=== PATIENT | male | born 1960 | race Caucasian/White ===

== ENCOUNTER 2017-03-19 19:18 | Emergency (ER) | payer MEDICARE ==
[2017-03-19 20:19] VITALS: BP 124/86
--- NOTE | 2017-03-19 20:34 | UC ---
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 Pain is constant but worsening over past 2 wks with pain at 4-5/10 now and over past several days. Initially started at 1-2/10. No SOB or nausea or vomiting. Never had coagulation work up (I adv he do so for FHx for kids). Here with Yvette who helps provide hx. she relays that he has dementia and may not recall details of hx. - History of Current Complaint Chief Complaint: UCChestPain Stated Complaint: LEFT ARM,SHOULDER,NECK PAIN 3 WEEKS Time Seen by Provider: 03/19/17 20:02 - Allergy/Home Medications Allergies/Adverse Reactions: Allergies Allergy/AdvReac Type Severity Reaction Status Date / Time Penicillins Allergy Rash And Verified 03/19/17 20:14 Itching SEASONAL HAYFEVER Allergy Intermediate ITCHY Uncoded 03/19/17 20:14 WATERY EYES, CONGESTION Home Medications: Home Medications Acetaminophen [Eql Acetaminophen Extra S] 1,000 mg PO BID 03/19/17 [History Confirmed 03/19/17] PMH/Surg Hx/FS Hx/Imm Hx Previously Healthy: Yes Cardiovascular History Of: Reports: Cardiac Disorders - ND, HF, Afib, Hypertension - CONTROL WITH MEDS, Pacemaker/ICD - [employer] - DR[employer], [facility], Congestive Heart Failure GI/ History Of: Reports: Kidney Stones - HX OF - Surgical History Surgery Procedure, Year, and Place: 2007 PACEMAKER INSERTION, [facility]. 1999 BACK SURGERY, [place]. 2010 [place]EC[place] SURGERY, [place]. 2013 BILATERAL WRIST ORIF, [facility] - Family History Known Family History: Positive: Hypertension - Social History Alcohol Use: None Substance Use Type: None Smoking Status (MU): Never Smoked Tobacco - Immunization History Most Recent Tetanus Shot: 2009 Review of Systems Constitutional: Negative Skin: Negative Eyes: Negative ENT: Negative Respiratory: Negative Cardiovascular: Chest Pain Gastrointestinal: Negative Genitourinary: Negative Motor: Negative Neurovascular: Negative Musculoskeletal: Negative Neurological: Negative Psychological: Negative All Other Systems Reviewed And Are Negative: Yes Physical Exam Triage Information Reviewed: Yes Appearance: Well-Appearing, No Pain Distress, Well-Nourished - lying on exam table Vital Signs: Initial Vital Signs Temp 99.4 F 03/19/17 19:54 Pulse 62 03/19/17 19:54 Resp 12 03/19/17 19:54 BP 124/86 03/19/17 19:54 Pulse Ox 97 03/19/17 19:54 Vital Signs Reviewed: Yes Eye Exam: Normal ENT Exam: Normal ENT: Positive: Pharynx normal, TMs normal Dental Exam: Normal Neck exam: Normal Neck: Positive: Supple, Nontender, No Lymphadenopathy Respiratory Exam: Normal Respiratory: Positive: Lungs clear, Normal breath sounds, No respiratory distress, No accessory muscle use, Other: - chest wall tenderness over the site of hamilton pacemaker in left upper chest wall. Cardiovascular Exam: Normal Cardiovascular: Positive: RRR, No Murmur, Pulses Normal, Brisk Capillary Refill Abdominal Exam: Normal Abdomen Description: Positive: Nontender, Soft Bowel Sounds: Positive: Present Musculoskeletal Exam: Normal Neurological: Positive: Alert - AAO x3 Psychological Exam: Normal Skin Exam: Normal - Assessment/Plan Course Of Treatment: They decline ambulance, they decline Rm. 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 Aware of risks of driving including MVA, , permament disability and worsening condition. EKG - paced rhythm - Differential Diagnoses - Chest Pain Differential Diagnosis/HQI/PQRI: Acute ND, ACS, Other: - chest wall pain/ PE - Differential Diagnoses - Hypertension Differential Diagnosis/HQI PQRI: Myocardial Infarction - Differential Diagnoses - Palpitations Differential Diagnosis/HQI/PQRI: AV Block, Coronary Artery Disease - Clinical Impression Provider Diagnoses: chest pain, recurrent DVTs, pacemaker - Physician Notifications Discussed Patient Care With: Dr Vasquez at [facility] who accepts pt. Will fax note. Reviewed case and hx with him. Time Discussed With Above Provider: 20:30 Discharge - Discharge Plan Condition: Fair Disposition: TRANS HIGHER L OF CARE FAC
== END 2017-03-19 20:45 | disposition left against medical advice (07) ==
LOC: UCCORT 19:18
DX: R07.9 Chest pain, unspecified (principal); Z86.718 Personal history of other venous thrombosis and embolism; I48.91 Unspecified atrial fibrillation; Z79.01 Long term (current) use of anticoagulants; G31.83 Neurocognitive disorder with Lewy bodies; F02.80 Dementia in other diseases classified elsewhere, unspecified severity, without behavioral disturbance, psychotic disturbance, mood disturbance, and anxiety; I25.2 Old myocardial infarction; I50.9 Heart failure, unspecified; I10 Essential (primary) hypertension; Z95.810 Presence of automatic (implantable) cardiac defibrillator; Z87.442 Personal history of urinary calculi; Z88.0 Allergy status to penicillin
CPT/HCPCS: 93005; 99212; G0463

== ENCOUNTER 2017-07-23 21:02 | Emergency (ER) | payer MEDICARE ==
--- NOTE | 2017-07-23 21:10 | UC ---
Abdominal Pain Male HPI - HPI Summary HPI Summary: 57 YEAR OLD MALE PRESENTS WITH COMPLAINS OF ABDOMINAL PAIN AND DIARRHEA AFTER EATING AN OMELETTE. - History of Current Complaint Stated Complaint: ABDOMINAL PAIN (? FOOD POISONING) Time Seen by Provider: 07/23/17 21:09 Hx Obtained From: Patient Onset/Duration: Sudden Onset Severity Initially: Moderate Severity Currently: Moderate Pain Scale Used: 0-10 Numeric - 5 Location: Diffuse Character: Colicy, Cramping, Sharp - Allergies/Home Medications Allergies/Adverse Reactions: Allergies Allergy/AdvReac Type Severity Reaction Status Date / Time Penicillins Allergy Rash And Verified 07/23/17 21:50 Itching SEASONAL HAYFEVER Allergy Intermediate ITCHY Uncoded 07/23/17 21:50 WATERY EYES, CONGESTION PMH/Surg Hx/FS Hx/Imm Hx - Surgical History Surgery Procedure, Year, and Place: 2007 PACEMAKER INSERTION, [facility]. 1999 BACK SURGERY, [place]. 2010 NECK SURGERY, [place]. 2013 BILATERAL WRIST ORIF, [facility] - Family History Known Family History: Positive: Hypertension - Social History Alcohol Use: None Substance Use Type: None Smoking Status (MU): Never Smoked Tobacco - Immunization History Most Recent Tetanus Shot: 2009 Review of Systems Constitutional: Negative Skin: Negative Eyes: Negative ENT: Negative Respiratory: Negative Cardiovascular: Negative Gastrointestinal: Abdominal Pain, Diarrhea, Nausea Genitourinary: Negative Motor: Negative Neurovascular: Negative Musculoskeletal: Negative Neurological: Negative Psychological: Negative All Other Systems Reviewed And Are Negative: Yes Physical Exam Triage Information Reviewed: Yes Eye Exam: Normal ENT Exam: Normal Dental Exam: Normal Neck exam: Normal Neck: Positive: 1 Respiratory Exam: Normal Cardiovascular Exam: Normal Abdomen Description: Positive: Soft, Distended Musculoskeletal Exam: Normal Neurological Exam: Normal Psychological Exam: Normal Skin Exam: Normal Abd Pain Male Course/Dx - Differential Dx/Clinical Impression Provider Diagnoses: DIFFUSE ABDOMINAL PAIN. DIARRHEA. NAUSEA Discharge - Discharge Plan Condition: Stable Disposition: HOME Prescriptions: Dicyclomine CAP* [Bentyl CAP*] 10 mg PO ACHS PRN #30 cap PRN Reason: Diarrhea Loperamide HCl [Imodium A-D] 2 mg PO TID PRN #1 box PRN Reason: Diarrhea Patient Education Materials: Acute Diarrhea (ED), Food Poisoning (ED), Abdominal Pain (ED) Referrals: Sosa Sena MD [Medical Doctor] - If Needed
[2017-07-23] MEDS ORDERED: Dicyclomine CAP* 10 MG PO ONE (21:20)
[2017-07-23 21:50] VITALS: BP 117/77
== END 2017-07-23 22:06 | disposition home or self-care (01) ==
LOC: UCCORT 21:02
DX: R10.84 Generalized abdominal pain (principal); R19.7 Diarrhea, unspecified; R11.0 Nausea; Z95.0 Presence of cardiac pacemaker
CPT/HCPCS: 82272; 87045; 87046; 87077; 87338; 87493; 87899; 99212; A9270-GY; G0463

== ENCOUNTER 2018-01-18 07:34 | Day surgery (SDC) | payer MEDICARE ==
--- NOTE | 2018-01-12 22:16 | HP ---
CC: Dr. Keegan Garcias, [facility]; Dr. Dangelo Nathan; Dr. Holloway, [facility]; Dr. Gauthier, [facility] * ADMISSION HISTORY AND PHYSICAL: DATE OF ADMISSION/SURGERY: 01/18/18 ATTENDING PHYSICIAN: Dr. Saroj Nazario * (HARI Fagan, dictating). CHIEF COMPLAINT: Melanoma of the back. HISTORY OF PRESENT ILLNESS: This is a 57-year-old male with significant past sun exposure history, who first noted itching of his back about 6 weeks ago. His noted a pigmented lesion on the right side of the back that was likely being inflamed by the scratching. He underwent excision by Dr. Garcias on 12/25, which revealed a 1.9 mm thickness melanoma (see separate report). The patient was referred for surgical evaluation and has also been seen by Dr. Dangelo Nathan for Medical Oncology. He was seen in the office by Dr. Nazario on 01/05/18. Dr. Nazario discussed with him the indications for surgery, the risks , benefits, and alternatives and the expected perioperative course. He would like to proceed as scheduled with wide excision of melanoma of the back with sentinel lymph node biopsy. PAST MEDICAL HISTORY: Atrial fibrillation, sick sinus syndrome (status post pacemaker placement), hypertension, hyperlipidemia, history of CHF, GERD, stroke x2 (felt to be related to atrial fibrillation), asthma and allergies, restless leg syndrome. 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 CURRENT MEDICATIONS: 1. Coumadin 10 mg every Monday, Monday, Monday; 5 mg all other days (after review of the epic prelude analyst's note, the patient will hold for 5 days preoperatively, his last dose being 01/12/18. He will resume postoperatively at Dr. Nazario's direction). 2. Lisinopril 10 mg once daily. 3. Flecainide 50 mg daily. 4. Spironolactone 25 mg daily. 5. Simvastatin 80 mg daily. 6. Rivastigmine 4.5 mg b.i.d. 7. Lyrica 50 mg q.h.s. 8. Ipratropium nasal spray 0.3% 2 sprays each nostril 2 to 3 times a day p.r.n. 9. Omeprazole 20 mg daily. 10. Proventil HFA 108 mcg per activation 2 puffs 4 times a day p.r.n. (uses infrequently). 11. Nitroglycerin 0.4 mg sublingual q.5 minutes x3 p.r.n. for chest pain (the patient has not required in at least the past year). DRUG ALLERGIES: PENICILLIN (pruritic rash). FAMILY HISTORY: Positive for melanoma in his paternal grandmother. No known family history of anesthesia problems, bleeding, or clotting disorder. SOCIAL HISTORY: The patient is . 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 He denies use of tobacco. He drinks less than 1 drink per month. He denies other recreational drug use. REVIEW OF SYSTEMS: General: No recent constitutional symptoms or acute illnesses other than described in the HPI. Cardiovascular: He notes occasional palpitations or fluttering, but no chest pain or lightheadedness. He has regular pacemaker interrogation and did have a Cardiology followup with Dr. Roman in [place] in October (see attached). Respiratory: No recent exacerbations of his asthma or allergies. No chronic cough or shortness of breath. GI: No problems reported. Colonoscopy done within the past 5 years, no problems reported. : No problems reported. Endocrine: No diabetes or thyroid dysfunction. PHYSICAL EXAMINATION GENERAL: Well-nourished, well-developed male, in no acute distress. VITAL SIGNS: Height 68 inches, weight 189 pounds, blood pressure 154/90, pulse 78, respirations 16. HEENT: Pupils equal and round, reactive. EOMs intact. No conjunctival pallor. Oropharynx: Full upper and lower dentures. No intraoral lesions. NECK: No lymphadenopathy, thyromegaly, or masses. Nodes in the supraclavicular or cervical regions per the patient. No axillary or inguinal lymphadenopathy per Dr. Nazario and Dr. Nathan's exam. LUNGS: Lungs clear to auscultation. No rales or rhonchi. HEART: Regular rate and rhythm. No murmur appreciated. There is a left upper anterior chest wall pacemaker palpable. ABDOMEN: Soft, nontender to palpation. No palpable masses or organomegaly. There is what appears to be a surgical scar in the right groin form prior herniorrhaphy. BACK: No spinous process or CVA tenderness, see also above for skin exam. GENITALIA: Not examined. RECTAL: Not done. EXTREMITIES: No edema. NEUROLOGICAL: Grossly intact. SKIN: Warm and dry. No suspicious rashes or lesions noted. On the back ( right mid to lower back), there is a healing wound from recent excision. There is no evidence of wound infection. IMPRESSION: Melanoma of the right back. PLAN: Excision, melanoma of the back; sentinel lymph node biopsy. HARI FAGAN [id number]/[facility] #: [id number] MTDAlva
[~2018-01-18 07:34] MED LIST: Buffered Lidocaine 0.9% SYRIN* 5 ML/SYR SYRINGE INTRADERM ONE; NS 0.9% 1000 ML* 1,000 ML IV SCH
[2018-01-18] MEDS ORDERED: Buffered Lidocaine 0.9% SYRIN* 5 ML/SYR SYRINGE ONE (07:42)
[2018-01-18] MEDS ORDERED: Clindamycin 900 MG IVPREMIX(* 900 MG/50 ML SDV IV ONE (07:42)
--- NOTE | 2018-01-18 09:43 | RAD ---
INDICATION: Melanoma. Comparison: There are no prior studies available for comparison. Technique: The benefits and risks of the procedure were explained to the patient. The patient consented to the exam. A timeout was performed before beginning the procedure. 0.5 mCi of technetium 99m filtered sulfur colloid were injected around the melanoma biopsy site on the right posterior inferior back region. Four intradermal injections were made. The patient tolerated the procedure well without incident. Multiple images of the chest, both axilla, pelvis and both inguinal regions were obtained. FINDINGS: There are 2 sentinel nodes in the right axillary region. These were localized and marked on the patient's skin. The results of this exam were discussed with the referring clinician. IMPRESSION: THERE ARE 2 SENTINEL NODES IN THE RIGHT AXILLARY REGION.
[2018-01-18] MEDS ORDERED: fentaNYL* 50 MCG/ML 2 ML VIAL (100 MCG VIAL) ONE ×2 (11:05→15:37)
[2018-01-18] MEDS ORDERED: Midazolam* 1 MG/ML 2 ML VIAL (2 MG) ONE ×2 (11:05→12:14)
[2018-01-18] MEDS ORDERED: Lidocaine 1% MPF wEPI 200,000* 30 ML SDV ONE (11:52)
[2018-01-18] MEDS ORDERED: Bupivacaine 0.5% SDV PF* 10-30ML VIAL ONE (11:53)
[2018-01-18] MEDS ORDERED: Rocuronium* 10 MG/ML VIAL ONE (12:16)
[2018-01-18] MEDS ORDERED: Propofol* 10 MG/ML 20 ML BTL IV PUSH ONE (12:16)
[2018-01-18] MEDS ORDERED: Lidocaine 2% PF * 5 ML VIAL ONE (12:16)
[2018-01-18] MEDS ORDERED: Famotidine IV* 10 MG/ML 2 ML (20 mg) ONE (12:16)
[2018-01-18] MEDS ORDERED: Dexamethasone IV* 4 MG/ML 1 ML (4 MG) ONE (12:16)
[2018-01-18] MEDS ORDERED: EPHEDrine (Pressors)* 50 MG/ML VIAL ONE (13:00)
[2018-01-18] MEDS ORDERED: DiMENhydriNATE IV* 50 MG/ML VIAL IV PUSH PRN (13:32)
[2018-01-18] MEDS ORDERED: Acetaminophen TAB* 325 MG PO PRN (13:32)
[2018-01-18] MEDS ORDERED: Levalbuterol 0.63MG/3ML NEB* UNIT OF USE INH PRN (13:32)
[2018-01-18] MEDS ORDERED: HYDROcodone/ACETAMIN 5-325 MG* 1 TAB PO PRN (13:32)
[2018-01-18] MEDS ORDERED: Naloxone* 0.4 MG/ML 1 ML VIAL IV PRN (13:32)
[2018-01-18] MEDS ORDERED: PROCHLORPERAZINE INJ 5 MG/ML 2 ML VIAL IV PRN (13:32)
[2018-01-18] MEDS ORDERED: Ketorolac INJ* 30 MG/ML 1 ML VIAL ONE (14:13)
[2018-01-18] MEDS ORDERED: HYDROcodone/ACETAMIN 5-325 MG* 1 TAB ONE (15:37)
[2018-01-18] MEDS: fentaNYL* 50 MCG/ML 2 ML VIAL (100 MCG VIAL) IV PRN ×2 (15:39→15:54)
[2018-01-18 16:24] VITALS: BP 129/87
--- NOTE | 2018-01-19 12:46 | OP ---
CC: Dr. Nazario; Dr. Gauthier; Dr. Garcias; Dr. Nathan OPERATIVE REPORT: DATE OF OPERATION: 01/18/18 DATE OF : 58 SURGEON: Saroj Nazario MD EDUCATION ADMINISTRATIVE ASSISTANT: Sharon Banks NP ANESTHESIOLOGIST: Dr. Hernandez. ANESTHESIA: General anesthetic, local infiltration. PRE-OP DIAGNOSIS: Melanoma of the back. POST-OP DIAGNOSIS: Melanoma of the back. OPERATIVE PROCEDURE: Wide excision melanoma of the back and sentinel node biopsy. DESCRIPTION OF PROCEDURE: The patient was supine on the operative table. After adequate general ane sthetic, he was put in the prone position. The area of the right mid back where the melanoma had bee n excised was identified. This was measured to have [address] margins [address] the way around and an elliptica l incision was created to encompass this and this was carried down to include the muscle fascia and t hen flaps were raised and brought together with 3-0 Vicryl and then skin closed with the surgical cli ps. Hemostasis was excellent. The specimen was marked medially and sent in formalin for pathologic evaluation. Sterile dressing was placed. He was then placed in the supine position with the right a rm extended out. The axilla was prepped with antiseptic and draped in a sterile fashion. Local infil trative anesthesia was administered. Approximately 4 cm incision was created and dissection was mosquera ied down to the axillary sánchez base at the upper marking for the sentinel lymph node. Two lymph node s were actually identified. These had counts of 628 and 2018 and these were labeled sentinel node #1 and sentinel node #2. At the inferior cheo, there was a very small lymph node with a count of 154, this was sent labeled sentinel node #3. There was no additional activity in the axilla. Hemostasis was obtained using electrocautery. Sutures were appropriate. Closure was accomplished using 3-0 and 5-0 Vicryl followed by Steri-Strips. He tolerated the procedure well, was awakened and brought to Re covery in good condition. There were no complications. No drains. Pathologic specimens were wide e xcision melanoma right back and sentinel lymph nodes 1, 2, and 3 of the right axilla as well as a lit tle additional axillary tissue. Estimated blood loss was 50 mL. There were no complications. [id number]/[facility] #: [id number]
== END 2018-01-18 16:25 | disposition home or self-care (01) ==
LOC: OR 07:34
PROVIDERS: ATTEND Surgery
DX: C43.59 Malignant melanoma of other part of trunk (principal); I49.5 Sick sinus syndrome; Z95.0 Presence of cardiac pacemaker; I48.91 Unspecified atrial fibrillation; Z79.01 Long term (current) use of anticoagulants; I42.8 Other cardiomyopathies; J45.909 Unspecified asthma, uncomplicated
CPT/HCPCS: 78195; 88305; 88307; 88341; 88342; A9541; J1100; J1885; J2001; J2250; J2704; J3010

== ENCOUNTER 2018-02-26 10:28 | Emergency (ER) | payer MEDICARE ==
[2018-02-26 11:04] VITALS: BP 126/75
--- NOTE | 2018-02-26 11:31 | RAD ---
HISTORY: Left second toe injury COMPARISONS: None VIEWS: 3, Frontal, lateral, and oblique views of the second digit of the left foot FINDINGS: BONE DENSITY: Normal. BONES: There is no displaced fracture. 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 ALIGNMENT: There is no dislocation. SOFT TISSUES: Unremarkable. OTHER FINDINGS: None. IMPRESSION: NO ACUTE OSSEOUS INJURY. IF SYMPTOMS PERSIST, RECOMMEND REPEAT IMAGING.
--- NOTE | 2018-02-26 11:50 | UC ---
Lower Extremity/Ankle HPI - HPI Summary HPI Summary: left 2nd toe pain x 1 day stub his left 2nd toe to the bottom of his bed pain and swelling, + bruising of the toe - History of Current Complaint Chief Complaint: UCLowerExtremity Stated Complaint: (L) GREAT/SECOND TOE INJURY Time Seen by Provider: 02/26/18 10:54 Hx Obtained From: Patient Onset/Duration: Sudden Onset, Lasting Days - 1, Still Present Severity Initially: Moderate Severity Currently: Moderate Pain Intensity: 3 Pain Scale Used: 0-10 Numeric Aggravating Factor(s): Standing, Ambulation Alleviating Factor(s): Rest, Elevation, Ice Able to Bear Weight: Yes - Allergies/Home Medications Allergies/Adverse Reactions: Allergies Allergy/AdvReac Type Severity Reaction Status Date / Time Penicillins Allergy Severe Rash And Verified 02/26/18 10:49 Itching SEASONAL HAYFEVER Allergy Intermediate ITCHY Uncoded 02/26/18 10:49 WATERY EYES, CONGESTION Home Medications: Home Medications Ibuprofen 400 mg PO ONCE PRN 02/26/18 [History Confirmed 02/26/18] PMH/Surg Hx/FS Hx/Imm Hx - Additional Past Medical History Additional PMH: skin ca melanoma Cardiovascular History: Cardiac Disease, Myocardial Infarction Respiratory History: Asthma - Surgical History Surgical History: Yes Surgery Procedure, Year, and Place: 2007 PACEMAKER INSERTION, [facility]. 1999 BACK SURGERY, [place]. 2010 N[place]K SURGERY, [place]. 2013 BILATERAL WRIST ORIF, [facility]; 2015 bone chip removed from left foot; 12/2017 melanoma removed from back right lymphnodes - Family History Known Family History: Positive: Hypertension - Social History Alcohol Use: None Substance Use Type: None Smoking Status (MU): Never Smoked Tobacco - Immunization History Most Recent Tetanus Shot: 2009 Review of Systems Constitutional: Negative Skin: Negative Eyes: Negative ENT: Negative Respiratory: Negative Cardiovascular: Negative Is Patient Immunocompromised?: No All Other Systems Reviewed And Are Negative: Yes Physical Exam Triage Information Reviewed: Yes Appearance: Well-Appearing, No Pain Distress, Well-Nourished Vital Signs: Initial Vital Signs Temp 97.9 F 02/26/18 10:55 Pulse 70 02/26/18 10:55 Resp 18 02/26/18 10:55 BP 126/75 02/26/18 10:55 Pulse Ox 99 02/26/18 10:55 Eye Exam: Normal Eyes: Positive: Conjunctiva Clear ENT: Positive: Normal ENT inspection, Hearing grossly normal, Pharynx normal, Pharyngeal erythema Neck: Positive: Supple, Nontender Respiratory: Positive: Chest non-tender, Lungs clear, Normal breath sounds Cardiovascular: Positive: RRR, No Murmur, Pulses Normal Musculoskeletal: Positive: Other: - left 2nd toe: + swelling , ecchymosis, tender to touch, limited ROM on flexion Diagnostics - Laboratory Diagnostic Studies Completed/Ordered: xray left 2nd toe: no fracture or dislocation Lower Extremity Course/Dx - Differential Dx/Diagnosis Provider Diagnoses: contusion left 2nd toe Discharge - Sign-Out/Discharge Documenting (check all that apply): Discharge - Discharge Plan Condition: Stable Disposition: HOME Patient Education Materials: Foot Contusion (ED) Referrals: SANDRA Willard [Primary Care Provider] - If Needed - Billing Disposition and Condition Condition: STABLE Disposition: HOME
== END 2018-02-26 11:39 | disposition home or self-care (01) ==
LOC: UCCORT 10:28
DX: S90.122A Contusion of left lesser toe(s) without damage to nail, initial encounter (principal); W22.03XA Walked into furniture, initial encounter; Y93.9 Activity, unspecified; Y92.003 Bedroom of unspecified non-institutional (private) residence as the place of occurrence of the external cause; Z88.0 Allergy status to penicillin; Z91.048 Other nonmedicinal substance allergy status
CPT/HCPCS: 99211; G0463

== ENCOUNTER 2021-10-04 05:58 | Inpatient (IN) ==
[2021-10-04] MEDS ORDERED: Buffered Lidocaine 1% SYRIN 1 ml INTRADERM ONE (06:00)
[2021-10-04] MEDS ORDERED: Lactated Ringers 1000 ml BAG 1,000 ML IV SCH (06:00)
[2021-10-04] MEDS ORDERED: Clindamycin 900 MG/D5W BAG 900 MG/50 ML BAG IVPB ONE (06:22)
[2021-10-04] MEDS ORDERED: Propofol 10 mg/ml 100 ML BTL 100 ML ONE ×2 (06:43)
[2021-10-04] MEDS ORDERED: Succinylcholine 200 mg VIAL 20 mg/ml 10 ml VIAL (200 mg) ONE (07:06)
[2021-10-04] MEDS ORDERED: fentaNYL 250 mcg/5 ml 50 MCG/ML 5 ml VIAL (250 MCG) ONE (07:06)
[2021-10-04] MEDS ORDERED: Remifentanil 2 MG VIAL ONE (07:06)
[2021-10-04] MEDS ORDERED: Rocuronium 50 mg VIAL 10 mg/ml 5 ml VIAL (50 mg) ONE (07:06)
[2021-10-04] MEDS ORDERED: Midazolam 2 mg/2 ml VIAL 1 mg/ml 2 ml VIAL (2 mg) ONE (07:07)
[2021-10-04] MEDS ORDERED: Lidocaine 2% PF 5 ML VIAL ONE (07:07)
[2021-10-04] MEDS ORDERED: Dexamethasone IV 4 MG/ML VIAL 1 ml VIAL ONE (07:07)
[2021-10-04] MEDS ORDERED: Vancomycin 1,000 MG VIAL ONE (07:11)
[2021-10-04] MEDS ORDERED: Lidocaine 1.5% EPI 1:200,000 30 ML SDV ONE (07:12)
[2021-10-04] MEDS ORDERED: ceFAZolin VIAL VIAL ONE ×2 (07:12→07:47)
[2021-10-04] MEDS ORDERED: Bacitracin OINTMENT TUBE ONE (07:12)
[2021-10-04] MEDS ORDERED: Lidocaine 1% w EPI 1:200,000 SDV 30 ML VIAL ONE (07:55)
[2021-10-04] MEDS ORDERED: Thrombin 5,000 UNITS 1 APPLIC KIT - topical use - TOPICAL ONE (08:34)
[2021-10-04] MEDS ORDERED: Gelfoam 12-7 ADSORBABL SPONGE ONE (08:34)
[2021-10-04] MEDS ORDERED: Naloxone 0.4 mg VIAL 0.4 mg/ml 1 ml VIAL IV PRN ×2 (09:03→10:42)
[2021-10-04] MEDS ORDERED: DiMENhydriNATE IV 50 mg/ml 1 ml VIAL IV PUSH PRN ×2 (09:03→10:42)
[2021-10-04] MEDS ORDERED: Ondansetron 4 mg VIAL 2 MG/ML 2 ml VIAL IV PRN ×3 (09:03→10:49)
[2021-10-04] MEDS ORDERED: Ondansetron 4 mg VIAL 2 MG/ML 2 ml VIAL ONE ×2 (09:46→11:00)
[2021-10-04] MEDS ORDERED: fentaNYL 100 mcg/2 ml 50 MCG/ML VIAL IV PRN (10:42)
[2021-10-04] MEDS ORDERED: Acetaminophen IV 1 GM/100ML 100 ML IV ONE ×2 (10:42→11:00)
[2021-10-04] MEDS ORDERED: Polyethylene Glycol 3350 17 GM PACKET PO PRN (10:55)
[2021-10-04] MEDS ORDERED: Morphine 2 MG/ML SYRINGE IV PRN (10:55)
[2021-10-04] MEDS ORDERED: Albuterol HFA INHALER 8 gm MDI INH PRN (10:57)
[2021-10-04] MEDS ORDERED: HYDROmorphone 1 MG/1 ML SYRINGE ONE ×2 (11:00→12:37)
[2021-10-04] MEDS: HYDROmorphone 1 MG/1 ML SYRINGE IV PRN ×7 (11:04→12:56)
[2021-10-04] MEDS ORDERED: fentaNYL 100 mcg/2 ml 50 MCG/ML VIAL ONE ×2 (11:23→13:22)
[2021-10-04] MEDS: fentaNYL 100 mcg/2 ml 50 MCG/ML VIAL IV PRN ×5 (11:23→13:23)
[2021-10-04] MEDS: NS 0.9% 1000 ml BAG 1,000 ML IV SCH (14:30)
[2021-10-04] MEDS ORDERED: Mometasone 220 MCG MDI INH PRN (15:23)
[2021-10-04] MEDS: Dexamethasone IV 4 MG/ML VIAL 1 ml VIAL IV SLOW PU SCH ×2 (15:26→21:34)
[2021-10-04] MEDS: Clindamycin 900 MG/D5W BAG 900 MG/50 ML BAG IVPB SCH (16:50)
[2021-10-04] MEDS: Magnesium Hydroxide LIQ 30 ML UDC PO SCH (20:04)
[2021-10-04] MEDS: Acetaminophen IV 1 GM/100ML 100 ML IV SCH (20:04)
[2021-10-04] MEDS: CMCS: Rivastigmine 1.5 mg CAP (NF) PO SCH (20:05)
[2021-10-04] MEDS ORDERED: RIVASTIGMINE TARTRATE 4.5 MG PO SCH (21:00)
[2021-10-05] MEDS: Clindamycin 900 MG/D5W BAG 900 MG/50 ML BAG IVPB SCH ×2 (00:20→09:36)
[2021-10-05] MEDS: NS 0.9% 1000 ml BAG 1,000 ML IV SCH (03:11)
[2021-10-05] MEDS: Acetaminophen IV 1 GM/100ML 100 ML IV SCH (03:11)
[2021-10-05] MEDS: Dexamethasone IV 4 MG/ML VIAL 1 ml VIAL IV SLOW PU SCH (06:07)
[2021-10-05 06:49] LABS: ABS Lymphocytes 0.4 10^3/ul (1.0-4.8); ABS Monocytes 0.3 10^3/ul (0-0.8); ABS Neutrophils 9.6 10^3/ul (1.5-7.7); Hematocrit 45 % (42-52); Hemoglobin 15.7 g/dL (14.0-18.0); Lymphocyte % 3.5 %; Mean Corpuscular HGB Conc 35 g/dL (31-36); Mean Corpuscular Hemoglobin 32 pg (27-31); Mean Corpuscular Volume 93 fL (80-94); Mean Platelet Volume 9.7 fL (7.4-10.4); Platelet Count 142 10^3/uL (150-450); Red Blood Count 4.87 10^6 /uL (4.18-5.48); Red Cell Distribution Width 13 % (10-15); White Blood Count 10.3 10^3/uL (3.5-10.8)
[2021-10-05 07:00] LABS: Calcium 8.9 mg/dL (8.6-10.3); Potassium 4.2 mmol/L (3.5-5.0)
[2021-10-05 08:43] VITALS: BP 138/76
[2021-10-05] MEDS ORDERED: METOPROLOL SUCCINATE PO SCH (09:00)
[2021-10-05] MEDS ORDERED: [UNRECOGNIZED DRUG - OTHER] PO SCH (09:00)
[2021-10-05] MEDS ORDERED: Enoxaparin 40 MG/0.4 ML SYR SUBCUT SCH (09:00)
[2021-10-05] MEDS ORDERED: HYDROCHLOROTHIAZIDE PO SCH (09:00)
[2021-10-05] MEDS: CMCS: Rivastigmine 1.5 mg CAP (NF) PO SCH (09:34)
[2021-10-05] MEDS: Magnesium Hydroxide LIQ 30 ML UDC PO SCH (09:37)
== END 2021-10-05 13:00 | disposition home health service (06) | DRG 473 ==
LOC: AA 05:58 → SSU 14:34
PROVIDERS: ADMIT Neurological Surgery; ATTEND Neurological Surgery